=== PATIENT | female | born 1960 | race Caucasian/White ===

== ENCOUNTER 2018-10-21 23:13 | Observation (INO) | payer OTHER ==
--- NOTE | 2018-10-21 23:38 | ED Physician Chart ---
ED Chief Complaint/HPI - Patient Information Date Seen:: 10/21/18 Time Seen:: 23:30 Chief Complaint:: redness left wrist History of Present Illness:: An area of redness of the left wrist was noticed at 1730 or 1800 today. No apparent trauma. Patient was admitted to this hospital September 28 for alcohol abuse and dehydration and was discharged to nursing SNF. Son is the historian and attributes her current lethargy to her medication of Remeron, Ambien and Seroquel. Allergies:: Allergies Allergy/AdvReac Type Severity Reaction Status Date / Time No Known Allergies Allergy Verified 10/21/18 23:25 Vitals:: Vital Signs - 8 hr 10/21/18 23:15 Temp 99.5 F HR 93 RR 18 BP 160/99 O2 Sat % 98 Historian:: Family Member Review:: Transfer documents Reviewed ED Review of Systems - Review of Systems General/Constitutional: No fever Skin: Skin lesions Head: No headache Eyes: No loss of vision ENT: No earache Neck: No neck pain Cardio Vascular: No chest pain Pulmonary: No SOB GI: No nausea, No vomiting, No diarrhea Musculoskeletal: Bone or joint pain Psychiatric: Prior psych history Hematopoietic: No bruising Allergic/Immuno: No urticaria Neurological: No syncope ED Past Medical History - Past Medical History Past Medical History: Other (neurosis; hepatic encephalopathy; dementia) Family History: Diabetes Melitus, HTN Social History: Smoker, Other (smoked about one half pack of cigarettes a day; alcohol since September 28) Surgical History: other (possible lumpectomy left breast) Psychiatricy History: Dementia, Other (headache encephalopathy) Medication: Reviewed Family Medical History - Family Member Mother History Unknown: Yes Hx Family Cancer: No Hx Family Coronary Artery Disease: No Hx Family Congestive Heart Failure: No Hx Family Hypertension: No Hx Family Stroke: No Hx Family Diabetes: No Hx Family Seizures: No Hx Family Dementia: No Hx Family AIDS: No Hx Family HIV: No Hx Family COPD: No Hx Family Hepatitis: No Hx Family Psychiatric Problems: No Hx Family Tuberculosis: No ED Physical Exam - Physical Examination Other Gen/Cons comments:: Barely arousable Head: Atraumatic Eyes: Lids, conjuctiva normal, PERRL Other Skin comments:: About 4 x 3 area of erythema and tenderness radial dorsum left wrist ENMT: External ears, nose nl, TM canals nl, Nasal exam nl, Lips, teeth, gums nl Neck: No nuchal rigidity Respiratory: Nl effort/Exclusion, Clear to Auscultation, No Wheeze/Rhonchi/Rales Cardio Vascular: RRR, No murmur, gallop, rubs GI: No tenderness/rebounding/guarding Extremities: Normal digits & nails Neuro/Psych: No focal deficits ED Labs/Radiology/EKG Results - Lab Results Results: Abnormal Lab Results 10/21/18 10/21/18 10/21/18 23:45 23:45 23:45 WBC 14.1 H RBC 2.91 L Hgb 10.5 L Hct 31.6 L MCV 108.5 H MCH 36.1 H MCHC Differential 33.3 RDW 13.2 Plt Count 491 H MPV 9.0 Neutrophils % 71.8 Lymphocytes % 14.1 L Monocytes % 11.1 H Eosinophils % 2.5 Basophils % 0.5 Sodium 142 Potassium 3.0 L Chloride 110 H Carbon Dioxide 25.5 Anion Gap 9.5 BUN 12 Creatinine 0.5 L Est GFR ( Amer) > 60.0 Est GFR (Non-Af Amer) > 60.0 BUN/Creatinine Ratio 24.0 Glucose 111 H Calcium 9.2 Magnesium Total Bilirubin 0.3 AST 13 ALT 10 Alkaline Phosphatase 117 H Ammonia 30 Total Protein 5.7 L Albumin 2.8 L Globulin 2.9 Albumin/Globulin Ratio 1.0 10/22/18 00:00 WBC RBC Hgb Hct MCV MCH MCHC Differential RDW Plt Count MPV Neutrophils % Lymphocytes % Monocytes % Eosinophils % Basophils % Sodium Potassium Chloride Carbon Dioxide Anion Gap BUN Creatinine Est GFR ( Amer) Est GFR (Non-Af Amer) BUN/Creatinine Ratio Glucose Calcium Magnesium 2.2 Total Bilirubin AST ALT Alkaline Phosphatase Ammonia Total Protein Albumin Globulin Albumin/Globulin Ratio - Radiology Results Results: X-ray left wrist showed osteopenia only; no fracture ED Assessment - Assessment General Assessment: At 0044 patient starting to arouse was still lethargic ED Septic Shock - . Is Septic Shock (SBP<90, OR Lactate>4 mmol\L) present?: No - <6hrs of presentation: Vital Signs: Vital Signs - 8 hr 10/21/18 23:15 Temp 99.5 F HR 93 RR 18 BP 160/99 O2 Sat % 98 ED Reassessment (Disposition) - Reassessment Reassessment Condition:: Unchanged - Diagnosis Diagnosis:: Altered mental status; osteopenia; history of cirrhosis; history of alcohol abuse; contusion or small area of cellulitis left wrist; hypokalemia - Patient Disposition Admitted to:: Med/Surg Spoke to:: Najma Correa Admitting Medical Physician:: Najma Correa Condition at Disposition:: Stable, Improved
[2018-10-21 23:52] LABS: HEMOGLOBIN 10.5 gm/dL (12-16); RED BLOOD COUNT 2.91 Mil/cmm (3.80-5.10); RED CELL DISTRIBUTION WIDTH 13.2 % (11.5-20.0)
[2018-10-22 00:08] LABS: ALBUMIN 2.8 gm/dL (3.7-5.3); ALKALINE PHOSPHATASE 117 U/L (34-104); ANION GAP 9.5 (7.0-16.0); BILIRUBIN,TOTAL 0.3 mg/dL (0.3-1.0); BUN - UREA NITROGEN 12 mg/dL (7-25); CALCIUM SERUM 9.2 mg/dL (8.6-10.3); CARBON DIOXIDE 25.5 mEq/L (21.0-31.0); CHLORIDE 110 mEq/L (98-107); CREATININE - SERUM 0.5 mg/dL (0.6-1.2); GFR AFRICAN-AMERICAN > 60.0 ml/min (>90); GFR NON AFRICAN-AMERICAN > 60.0 ml/min; GLUCOSE 111 mg/dL (70-105); SGOT 13 U/L (13-39); SGPT/ALT 10 U/L (7-52); SODIUM SERUM 142 mEq/L (136-145); TOTAL PROTEIN,SERUM 5.7 gm/dL (6.0-8.3)
[2018-10-22 00:15] LABS: % BASOPHILS 0.5 % (0.0-2.0); % EOSINOPHILS 2.5 % (0.0-5.0); % LYMPHOCYTES 14.1 % (20.0-50.0); % MONOCYTES 11.1 % (2.0-10.0); % NEUTROPHILS 71.8 % (40.0-80.0); BASOPHILE ABSOLUTE 0.1 Th/cumm (0-0.2); EOSINOPHILE ABSOLUTE 0.4 Th/cmm (0.1-0.4); HEMATOCRIT 31.6 % (41.0-60); MEAN CORPUSCULAR HEMOGLOBIN 36.1 pg (27.0-31.0); MEAN CORPUSCULAR HGB CONC 33.3 pg (28.0-36.0); MONOCYTE ABSOLUTE 1.6 Th/cmm (0.3-1.0); PLATELET COUNT 491 Th/cmm (150-400); WHITE BLOOD COUNT 14.1 Th/cmm (4.8-10.8)
[2018-10-22 00:17] LABS: MEAN CELL VOLUME 108.5 fl (81-100)
[2018-10-22] MEDS ORDERED: Potassium Chloride 20 mEq ER Tab PO ONE ×3 (00:18→16:00)
--- NOTE | 2018-10-22 08:35 | Diagnostic Imaging Report ---
Exam: Left wrist joint. HISTORY: Trauma. Findings: Multiple views of the left wrist joint reviewed. The study demonstrates no evidence of fracture or dislocation. The radiocarpal joint is intact. The carpal bones are normal. IMPRESSION: Normal examination left wrist joint.
[2018-10-22 10:17] VITALS: BP 141/91
[2018-10-22 10:58] LABS: HEMATOCRIT 32.6 % (41.0-60)
[2018-10-22 11:05] LABS: HEMOGLOBIN 10.9 gm/dL (12-16); MEAN CORPUSCULAR HEMOGLOBIN 35.8 pg (27.0-31.0); MEAN CORPUSCULAR HGB CONC 33.4 pg (28.0-36.0); MEAN PLATELET VOLUME 9.3 fl; PLATELET COUNT 495 Th/cmm (150-400); RED BLOOD COUNT 3.04 Mil/cmm (3.80-5.10); RED CELL DISTRIBUTION WIDTH 13.2 % (11.5-20.0); WHITE BLOOD COUNT 12.9 Th/cmm (4.8-10.8)
[2018-10-22 11:09] LABS: MEAN CELL VOLUME 107.2 fl (81-100)
[2018-10-22 11:17] LABS: ANION GAP 9.9 (7.0-16.0); BUN - UREA NITROGEN 9 mg/dL (7-25); CALCIUM SERUM 9.4 mg/dL (8.6-10.3); CARBON DIOXIDE 24.5 mEq/L (21.0-31.0); CHLORIDE 108 mEq/L (98-107); CREATININE - SERUM 0.4 mg/dL (0.6-1.2); GFR AFRICAN-AMERICAN > 60.0 ml/min (>90); GFR NON AFRICAN-AMERICAN > 60.0 ml/min; GLUCOSE 103 mg/dL (70-105); POTASSIUM SERUM 3.4 mEq/L (3.5-5.1); SODIUM SERUM 139 mEq/L (136-145)
[2018-10-22 11:39] LABS: BAND NEUTROPHILE 2 % (0-10); LYMPHOCYTE 11 % (20-50); MONOCYTE 5 % (2-10); NEUTROPHILS 79 % (40-80)
[2018-10-22 11:40] LABS: EOSINOPHIL 3 % (0-5)
--- NOTE | 2018-10-22 18:22 | History and Physical ---
History of Present Illness - HPI Chief Complaint: left wrist redness HPI: This is a 58-year old female who is admitted as observation in the telemetry unit. Patient is a resident of [facility] admitted secondary to left wrist redness. NO reports of any fevers. Vital Signs: Last Vital Signs Temp 98.7 F 10/22/18 16:01 Pulse 80 10/22/18 16:01 Resp 19 10/22/18 16:01 BP 152/69 10/22/18 16:01 Pulse Ox 100 10/22/18 16:01 Past Medical History Other History: neurosis; hepatic encephalopathy; dementia Family Medical History - Family Member Mother History Unknown: Yes Hx Family Cancer: No Hx Family Coronary Artery Disease: No Hx Family Congestive Heart Failure: No Hx Family Hypertension: No Hx Family Stroke: No Hx Family Diabetes: No Hx Family Seizures: No Hx Family Dementia: No Hx Family AIDS: No Hx Family HIV: No Hx Family COPD: No Hx Family Hepatitis: No Hx Family Psychiatric Problems: No Hx Family Tuberculosis: No Social History Smoke: 1 pack per day Alcohol: None Drugs: None Lives: Shelter - Medications Home Medications: Home Medication Medication Instructions Recorded Type Acetaminophen [Tylenol] 650 mg PO Q4HR PRN 10/21/18 History Al Hyd/Mg Hyd/Simethicone [Maalox] 30 ml PO Q6HR PRN 10/21/18 History Bismuth Subsalicylate 30 ml PO Q6HR PRN 10/21/18 History [Pepto-Bismol] Diphenoxylate/Atropine [Lomotil] 1 tab PO Q4HR PRN 10/21/18 History Folic Acid [Folate] 1 mg PO DAILY 10/21/18 History Lorazepam [Ativan] 1 mg PO Q6HR PRN 10/21/18 History Magnesium Oxide 400 mg PO BID 10/21/18 History Mirtazapine [Remeron] 30 mg PO HS 10/21/18 History Multivitamin [Theragran] 1 tab PO DAILY 10/21/18 History Pantoprazole [Protonix] 40 mg PO DAILY 10/21/18 History QUEtiapine Fumarate [SEROquel] 75 mg PO TID 10/21/18 History Sodium Chloride Tab [NaCL Tab] 1 gm PO DAILY 10/21/18 History Sodium Phos / Potassium Phos 1.25 gm PO DAILY 10/21/18 History [Neutra-Phos] Thiamine [Vitamin B1] 100 mg PO DAILY 10/21/18 History Zolpidem Tartrate [Ambien] 10 mg PO HS PRN 10/21/18 History - Allergies Allergies/Adverse Reactions: Allergies Allergy/AdvReac Type Severity Reaction Status Date / Time No Known Allergies Allergy Verified 10/21/18 23:25 Review of Systems - Review of Systems Constitutional: Report: Weakness Eyes: Report: No Significant Respiratory: Report: No Significant Cardiovascular: Report: No Significant Neurological: Report: Weakness Physical Exam - Physical Exam HEENT: Report: Ears Nose Throat within normal limits Neck: Report: Within normal limits Cardiovascular Systems: Report: +s1/s2 noted, Regular, Rate and Rhythm Respiratory: Report: Breath Sounds are within normal limits Abdomen: Report: Non-tender to palpation Skin: Report: Other (left wrist redness improving) Neuro/Psych: Report: Mood affect is within normal limits - Lab Results All Lab Results last 24 hours: Laboratory Results - last 24 hr 10/21/18 10/21/18 10/21/18 23:45 23:45 23:45 WBC 14.1 H RBC 2.91 L Hgb 10.5 L Hct 31.6 L MCV 108.5 H MCH 36.1 H MCHC Differential 33.3 RDW 13.2 Plt Count 491 H MPV 9.0 Add Manual Diff Neutrophils % 71.8 Band Neutrophils % Lymphocytes % 14.1 L Monocytes % 11.1 H Eosinophils % 2.5 Basophils % 0.5 Neutrophils (Manual) Lymphocytes Monocytes Eosinophils Macrocytosis Sodium 142 Potassium 3.0 L Chloride 110 H Carbon Dioxide 25.5 Anion Gap 9.5 BUN 12 Creatinine 0.5 L Est GFR ( Amer) > 60.0 Est GFR (Non-Af Amer) > 60.0 BUN/Creatinine Ratio 24.0 Glucose 111 H Calcium 9.2 Magnesium Total Bilirubin 0.3 AST 13 ALT 10 Alkaline Phosphatase 117 H Ammonia 30 Total Protein 5.7 L Albumin 2.8 L Globulin 2.9 Albumin/Globulin Ratio 1.0 10/22/18 10/22/18 10/22/18 00:00 10:30 10:30 WBC 12.9 H RBC 3.04 L Hgb 10.9 L Hct 32.6 L MCV 107.2 H MCH 35.8 H MCHC Differential 33.4 RDW 13.2 Plt Count 495 H MPV 9.3 Add Manual Diff YES Neutrophils % Band Neutrophils % 2 Lymphocytes % Monocytes % Eosinophils % Basophils % Neutrophils (Manual) 79 Lymphocytes 11 L Monocytes 5 Eosinophils 3 Macrocytosis 2+ Sodium 139 Potassium 3.4 L Chloride 108 H Carbon Dioxide 24.5 Anion Gap 9.9 BUN 9 Creatinine 0.4 L Est GFR ( Amer) > 60.0 Est GFR (Non-Af Amer) > 60.0 BUN/Creatinine Ratio 22.5 Glucose 103 Calcium 9.4 Magnesium 2.2 Total Bilirubin AST ALT Alkaline Phosphatase Ammonia Total Protein Albumin Globulin Albumin/Globulin Ratio - Assessment Assessment: left wrist redness r/o cellulitis neurosis hepatic encephalopathy dementia - Plan Plan: admit as obs ok to dc back to [facility]
--- NOTE | 2018-10-22 20:55 | History & Physical ---
ADMIT DATE: 10/22/2018 COVERING FOR: Dr. Correa. CHIEF COMPLAINT: Left wrist redness. HISTORY OF PRESENT ILLNESS: This is a 58-year-old female, who is a resident of [facility], who is admitted as observation in telemetry unit due to left wrist redness. The patient DICTATION ENDS HERE JOB# [id number]
--- NOTE | 2018-10-23 05:31 | Consultation ---
DATE OF CONSULTATION: 10/22/2018 INFECTIOUS DISEASE CONSULTATION REFERRING PHYSICIAN: Dr. Correa. REASON FOR CONSULTATION: Left wrist and forearm cellulitis. HISTORY OF PRESENT ILLNESS: The patient is a 58-year-old female admitted to the hospital to the ER yesterday for left wrist and lower forearm swelling, redness and pain. She had a history of alcohol abuse and admitted on 09/28/2018. She was discharged to skilled nursing. On initial evaluation, the patient's temperature was 99.5 degree Fahrenheit and WBC count was 14,100. Antibiotic roberson, vancomycin IV was started. An ID consult was called in for antibiotic management. PAST MEDICAL HISTORY: Includes alcohol abuse, ____, hepatic encephalopathy, and psychosis. FAMILY HISTORY: Includes diabetes mellitus type 2, hypertension. SOCIAL HISTORY: The patient has a history of smoking, smokes 1-1/2 pack of cigarettes a day. History of alcohol abuse. PAST SURGICAL HISTORY: Include possible lumpectomy, left breast. PSYCHIATRIC HISTORY: Dementia and hepatic encephalopathy. MEDICATIONS: Medication reconciliation sheet. Antibiotic roberson, the patient is receiving vancomycin. FAMILY HISTORY: Noncontributory. REVIEW OF SYSTEMS: GENERAL: The patient has no fever, no chills. HEENT: No diplopia, no photophobia, no sore throat. RESPIRATORY: No cough, no shortness of breath. CARDIOVASCULAR: No chest pain or palpitation. GASTROINTESTINAL: No nausea, vomiting. No diarrhea, no constipation. GENITOURINARY: No dysuria. NEUROLOGIC: No headache, no dizziness, no focal weakness. SKIN: The patient has redness and tender swelling of the left wrist area and distal forearm. PHYSICAL EXAMINATION: CURRENT VITAL SIGNS: Shows temperature is 98.9 degrees Fahrenheit, pulse is 84, respiration 19, and blood pressure 149/90. GENERAL: The patient is comfortable lying in bed, not in acute distress. HEENT: Head is normocephalic, atraumatic. Oral cavity moist, pink tongue. Eyes: No pallor, no icterus. PERRLA, EOMI. NECK: Supple, no JVD, no carotid bruit. Trachea in midline. CHEST: Bilateral breath sounds. No crackles or wheezing. HEART: S1, S2 within normal limits. Regular rhythm. No murmur, no gallop. ABDOMEN: Soft, nontender, nondistended. Bowel sounds present. EXTREMITIES: No cyanosis, no clubbing. Edema, left upper extremity, the patient has redness and warmth of the skin overlying the left wrist posterolaterally and it is extended to the distal forearm. There is tenderness present. No open ulcer. LABORATORY DATA: Current lab shows WBC count is 12,900, hemoglobin 10.9, hematocrit 32.9, platelets are 495,000, neutrophils 79%. Sodium is 139, potassium 3.4, chloride 108, bicarbonate is 24.5, BUN is 9, creatinine 0.4, glucose is 103. X-ray of the wrist shows normal examination left wrist. IMPRESSION: 1. Cellulitis of the left wrist and forearm. 2. Leukocytosis, rule out sepsis. 3. History of alcohol abuse. 4. History of psychosis. RECOMMENDATIONS: I will continue vancomycin IV at this time. Depending on the outcome, we will try to change antibiotic to clindamycin p.o. for 10 days from now. Meanwhile get the blood cultures, which was not done till now and the patient has leukocytosis. Thank you, Dr. Correa for involving me in taking care of this patient. JOB# [id number]
--- NOTE | 2018-11-01 18:04 | Discharge Summary ---
DATE OF DISCHARGE: 10/22/2018 The patient is a 58-year-old female. The patient is known to have a history of underlying psychosis, history of alcohol abuse, was admitted because of left wrist swelling, found to have cellulitis, and the patient was started on IV vancomycin. I had the ID doctor see the patient. The patient improved and the patient is in stable condition. At this point, the patient is discharged back to [facility], where I will be following the patient. The patient will be on oral antibiotics with the final diagnosis of left chest cellulitis, improving; history of psychosis; history of alcohol abuse. The patient, at the time of discharge, was stable. MEDICATION: See the reconciliation sheet. DIET AND ACTIVITY: See the discharge instructions. JOB# [id number]
== END 2018-10-22 20:52 ==
LOC: EDUNIT# → ER 23:13 → TELE 10-22 00:55
PROVIDERS: ADMIT Internal Medicine; ATTEND Internal Medicine
DX: M79.89 Other specified soft tissue disorders (principal); F48.9 Nonpsychotic mental disorder, unspecified; K72.90 Hepatic failure, unspecified without coma; F03.90 Unspecified dementia, unspecified severity, without behavioral disturbance, psychotic disturbance, mood disturbance, and anxiety; F17.210 Nicotine dependence, cigarettes, uncomplicated; F10.10 Alcohol abuse, uncomplicated; F29 Unspecified psychosis not due to a substance or known physiological condition; D72.829 Elevated white blood cell count, unspecified
CPT/HCPCS: 99284; 36415 ×2; 85025 ×2; 80053; 73100; 85007; 82140; 83735; 80048; 87081; 87040 ×2; 96365; 96366; 99219 ×20; J3370; G0378; Z7502